=== PATIENT | male | born 1970 | race Caucasian/White ===

== ENCOUNTER 2023-09-28 12:53 | Outpatient (CLI) | payer OTHER, SELFPAY ==
--- NOTE | 2023-09-28 13:10 | XR_ITS ---
WS: [email or web address] Cervical spine, 3 views, 09/28/2023 Clinical Data: NECK PAIN, BACK PAIN Comparison: None. Findings: No compression fractures are seen. There is disc narrowing at C4-C5, C5-C6 and C6-C7 with a nterior osteophyte formation. There is no prevertebral soft tissue swelling. The odontoid is unremar kable. The soft tissues of the neck and the lung apices are normal. XR/XR cervical spine 3V* [id number] Impression: Multilevel degenerative disc narrowing with anterior osteophytes C4-C7.
--- NOTE | 2023-09-28 13:12 | XR_ITS ---
WS: [email or web address] Right ankle, 3 views, 09/28/2023 Clinical Data: BILAT ANKLE PAIN Comparison: None. Findings: No fractures or dislocations are seen. The ankle mortise is normal. The talus shows a questionable co rtical defect in the medial aspect on the oblique view. The AP view appears normal. No soft tissue sw elling over the medial or lateral malleolus is seen. There is a plantar spur. XR/XR ankle RT min 3V* [id number] Impression: 1. Questionable cortical defect of medial talus seen only on oblique view. 2. Recommend repeat AP and oblique views of the right ankle to evaluate for que stionable talar cortical defect.
--- NOTE | 2023-09-28 13:13 | XR_ITS ---
WS: [email or web address] Left ankle, 3 views, 09/28/2023 Clinical Data: BILAT ANKLE PAIN Comparison: None. Findings: No fractures or dislocations are seen. The ankle mortise is normal. The talus and calcaneus are unrem arkable. No soft tissue swelling over the medial or lateral malleolus is seen. There is a plantar spur. XR/XR ankle LT min 3V* [id number] Impression: Negative left ankle.
--- NOTE | 2023-09-28 13:13 | XR_ITS ---
WS: [email or web address] Lumbar spine, 3 views, 09/28/2023 Clinical Data: BACK PAIN Comparison: None. Findings: No compression fractures or subluxation is seen. There is disc space narrowing at L2-L3 and L3-L4 wit h accompanying anterior osteophytes. There is a slight dextroscoliosis of the upper lumbar spine. The transverse processes and SI joints are normal. There is a small calcification overlying the left kidney which could be a renal calculus. There is a large amount of fecal material throughout the colon. XR/XR lumbar spine 2-3V* [id number] Impression: 1. 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 2. Minimal dextroscoliosis of the upper lumbar spine. 3. Questionable left renal calculus.
--- NOTE | 2023-09-28 13:19 | XR_ITS ---
WS: [email or web address] Sinus series, 4 views, 09/28/2023 Clinical Data: SINUSITIS Comparison: None. Findings: The sinuses show no air-fluid levels or mucoperiosteal thickening. No opacification is present. The o rbits are unremarkable. XR/XR sinus min 3V* [id number] Impression: Negative sinus series.
--- NOTE | 2023-09-28 13:19 | XR_ITS ---
WS: [email or web address] AP pelvis, 2 views of each hip, 09/28/2023 Clinical Data: BILATERAL HIP PAIN Comparison: None. Findings: The hips show no narrowing, erosion, sclerosis or fragmentation of the femoral heads. The SI joints a nd pubic symphysis are unremarkable. No fractures or dislocations are seen. There is no bone destruct ion or erosion. The soft tissues are normal. XR/XR hip BI 2V wo/w pel [id number] Impression: Negative pelvis and both hips.
--- NOTE | 2023-09-28 13:19 | XR_ITS ---
WS: [email or web address] Right shoulder, 2 views, 09/28/2023 Clinical Data: BILAT SHOULDER PAIN Comparison: None. Findings: No fractures or dislocations are seen. There is mild irregularity of the greater tuberosity and the a djacent inferior glenoid rim. The AC joint is normal. The adjacent right clavicle, right scapula and ribs are normal. The soft tissues are unremarkable. XR/XR shoulder RT min 2V* [id number] Impression: Mild osteoarthritis of the right glenohumeral joint.
--- NOTE | 2023-09-28 13:19 | XR_ITS ---
WS: [email or web address] Left shoulder, 2 views, 09/28/2023 Clinical Data: BILAT SHOULDER PAIN Comparison: None. Findings: No fractures or dislocations are seen. The AC joint is normal. The adjacent left clavicle, left scapu la and ribs are normal. The soft tissues are unremarkable. XR/XR shoulder LT min 2V* [id number] Impression: Negative left shoulder.
--- NOTE | 2023-09-28 13:19 | XR_ITS ---
WS: [email or web address] Sacroiliac joints, 3 views, 09/28/2023 Clinical Data: BACK PAIN/SACRAL NERVE PAIN Comparison: None. Findings: The SI joints are normal in width. No erosion, sclerosis or destruction is seen. There are no fractur es or dislocations. The adjacent visualized pelvis and hips are unremarkable. XR/XR sacroiliac jts m 3V [id number] Impression: Negative SI joints.
== END 2023-09-28 12:54 | disposition home or self-care (01) ==
LOC: RAD 13:01
PROVIDERS: Visit Provider Nurse Practitioner Family
DX: M19.011 Primary osteoarthritis, right shoulder (principal); M51.36 Other intervertebral disc degeneration, lumbar region; M47.816 Spondylosis without myelopathy or radiculopathy, lumbar region; M41.86 Other forms of scoliosis, lumbar region; N28.89 Other specified disorders of kidney and ureter; M77.32 Calcaneal spur, left foot; M77.31 Calcaneal spur, right foot; M89.8X7 Other specified disorders of bone, ankle and foot; M50.321 Other cervical disc degeneration at C4-C5 level; M50.322 Other cervical disc degeneration at C5-C6 level; M50.323 Other cervical disc degeneration at C6-C7 level; M25.78 Osteophyte, vertebrae; M25.562 Pain in left knee; M25.561 Pain in right knee
CPT/HCPCS: 70220; 72040; 72100; 72202; 73030; 73521; 73610